=== PATIENT | female | born 1960 | race Caucasian/White ===

== ENCOUNTER 2016-11-01 09:12 | Observation (INO) ==
[2016-11-01] MEDS ORDERED: ONDANSETRON 4 MG/2 ML VIAL IV PRN (09:20)
[2016-11-01] MEDS ORDERED: ACETAMINOPHEN 325 MG TABLET PO PRN (09:20)
[2016-11-01] MEDS ORDERED: DOCUSATE SODIUM 100 MG CAPSULE PO PRN (09:20)
[2016-11-01] MEDS ORDERED: ZALEPLON 5 MG CAPSULE PO PRN (09:20)
--- NOTE | 2016-11-01 10:59 | EKG Report ---
Stationary ECG Study [facility] Test Date: 11/01/2016 10:59:19 AM Pat Name: DELMI OAKLEY Department: Room: 237 Gender: F [employer] Member: JAMILA : 1960 Requested by: Rachael Bowles Order Number: [id number] Reading MD: SAMIRA SALAZAR Intervals [place] Rate: 54 P: 48 MA: 166 QRS: -18 QRSD: 90 T: 23 QT: 422 QTc: 409 Interpretive Statements SINUS BRADYCARDIA POSSIBLE RIGHT VENTRICULAR CONDUCTION DELAY Electronically Signed On 11-03-16 13:02:12 CDT by SAMIRA SALAZAR [email or web address]
[2016-11-01 11:32] LABS: Basophils % 0.4 % (0.0-0.8); Eosinophils # 0.1 10*3/uL (0.0-0.87); Eosinophils % 1.1 % (0.00-10.9); Hematocrit 47.6 VOL% (35.7-47.0); Immature Granulocytes % 0.4 %; Immature Granulocytes Absolute 0.04 #; Lymphocytes # 2.2 10*3/uL (1.4-4.0); Mean Corpuscular HGB Conc 31.5 GM/DL (32-36); Mean Corpuscular Hemoglobin 31 PG (27-34); Mean Corpuscular Volume 99.4 FL (87-102); Mean Platelet Volume 9.3 FL (9.6-12.0); Monocytes # 0.5 10*3/uL (0.11-0.8); Monocytes % 5.3 % (1.7-12.7); Neutrophils # 6.2 10*3/uL (1.4-7.4); Neutrophils % 68.8 % (38.7-73.9); Platelet Count 248 T/CUMM (130-400); Red Blood Count 4.79 MC/CUMM (3.8-5.5); Red Cell Distribution Width 13.1 % (9.3-17.3)
[2016-11-01 12:13] LABS: Calcium 8.7 MG/DL (8.5-10.1); Osmolality,Calculated 286.7 MOS/KG (273-304); Potassium 4.1 MMOL/L (3.5-5.1); Risk Ratio 2.74; Thyroid Stimulating Hormone 0.788 uIU/ml (0.358-3.74); VLDL CHOLESTEROL 36.6 MG/DL
--- NOTE | 2016-11-01 12:43 | Pulmonology Consult Note ---
Assessment and Plan (1) Acute bronchitis Status: Acute Assessment and plan: She has had a cough and sputum production going on for 2-3 weeks now. We will treat her for exacerbation of COPD. Do not know for sure that she has COPD however. We will need to get PFTs on her. Current Visit: Yes (2) Coronary artery disease Status: Chronic Assessment and plan: Previous coronary stent. Defer to cardiology. Current Visit: No (3) Fibromyalgia Status: Chronic Assessment and plan: Chronic problem for her. She has been on a lot of medication for that. Current Visit: No (4) Tobacco abuse Status: Chronic Assessment and plan: I have stressed the importance of her stopping smoking. She tells me that it is difficult. Current Visit: No History of Present Illness Chief complaint: Shortness of breath general debility History of present illness: Ms. Mar is a 56 year old female who has been a long-term smoker. She smoked 2 packs a day up until about a year ago and cut back to half pack a day. She has fibromyalgia and has been told she had COPD in the past. She had a chest x-ray made about a year and a half ago at which time she had a non-ST elevation myocardial infarction and had a heart cath and a stent. She tells me that she was told at that time she had a mass on her long and needed to see a lung doctor. Reviewing the film from that date she has a minimal left basilar infiltrate which has subsequently resolved and there is no mass on her chest x- ray. She is really down because she has been applying for disability and has not been able to get it apparently. Her has [employer] and is followed by miter sawyer in [place]. The patient states that she is not able to afford medications or medical care because she is uninsured. She does have some dyspnea on exertion. She has a cough with phlegm production with brownish phlegm. She had a recent episode of bronchitis about 3 weeks ago and was given a shot and some oral medications by Dr. Lopez in [place]. She is really not better from that. Home Medications Medication Instructions Recorded Confirmed Type Famotidine 20 mg PO DAILY W/SUPPER PRN 06/25/15 11/01/16 History HYDROcodone/ACETAMIN 7.5-325 1 tablet PO BID 06/25/15 11/01/16 History [[place] 7.5-325] traZODone [Desyrel] 50 mg PO BEDTIME 06/25/15 11/01/16 History Atorvastatin [Lipitor] 80 mg PO BEDTIME 07/20/16 11/01/16 History Alprazolam [Xanax] 1 mg PO QID 11/01/16 11/01/16 History Cholecalciferol (Vitamin D3) 2,000 unit PO DAILY 11/01/16 11/01/16 History [Vitamin D3] Clopidogrel [Plavix] 75 mg PO DAILY 11/01/16 11/01/16 History Cyanocobalamin Inj [Vitamin B12 1,000 mcg SUBCUT Q30D 11/01/16 11/01/16 History Inj] Furosemide Tab [Lasix Tab] 40 mg PO QOTHER DAY 11/01/16 11/01/16 History Lisinopril [Prinivil] 10 mg PO DAILY 11/01/16 11/01/16 History Methocarbamol 750 mg PO BID 11/01/16 11/01/16 History Metoprolol Tartrate 25 mg PO BID 11/01/16 11/01/16 History Allergies Allergy/AdvReac Type Severity Reaction Status Date / Time No Known Allergies Allergy Verified 07/19/16 22:56 12 point system: reviewed and no additional remarkable complaints except as stated - Cardiovascular Cardiovascular: Present: chest pain with activity (This has resolved since previous hospitalization in July), dyspnea, dyspnea on exertion - Respiratory Respiratory: Present: cough, dyspnea, dyspnea on exertion, change in phlegm color - Musculoskeletal Musculoskeletal: Present: arthralgias, back pain, myalgias - Psychiatric Psychiatric: Present: anxiety - Endocrine Endocrine: Present: fatigue - Hematologic/Lymphatic Hematologic/Lymphatic: Present: easy bruising Exam (Pulmonay) H&P - Constitutional Vitals: Period Temp Pulse Resp BP Sys/Salmon Pulse Ox Last 24 Hr 98.3 F 60 20 132/73 96 Exam: Vital signs are normal. Room air O2 saturation 96%. She appears anxious. Pupils react to light. Throat is clear. Neck supple no bruits. Chest reveals prolonged expiratory phase but no active wheezing. Heart normal rate and rhythm no murmurs no rubs no gallops. Abdomen soft nontender no masses. Extremities no clubbing cyanosis or edema. Calves nontender. Medical,Surgical,& Family Hx - Medical History Cardio: History of: Hypertension, [place] (2015) No history of: Aneurysm, Cardiac Dysrhythmia, Cerebrovascular Disease, CHF, Pacemaker Psychological: History of: Depression No history of: Anxiety Disorders, ADHD, Behavior Problems, Previous Suicide Attempt, Psychiatric/Substance Abuse Tx, Violent Behavior, Psychiatric Problems Neurology: History of: Seizures (hx none at present) No history of: Brain Aneurysm, Cerebral Hemorrhage, Cerebrovascular Accident , Cerebral Palsy, Dementia, Parkinson's Disease, Peripheral Neuropathy, Neurologocal Cancer HEENT: No history of: Ear Problem, Eye Problem, Dental Problems, Glaucoma, Oral Cancer, HEENT Problems Endocrine: No history of: Adrenal Disease, Diabetes Mellitus (IDDM), Diabetes Mellitus ( NIDDM), Thyroid Disorder, Endocrine Cancer, Endocrine Problems Respiratory: History of: Bronchitis, COPD No history of: Asthma, Obstructive Sleep Apnea, Pulmonary Hypertension, Respiratory Problems Renal: History of: Renal Problems (URINARY HESTANCY) Gastrointestinal: History of: GERD, Hemorrhoids No history of: Gastrointestinal Bleed, Hepatitis, Liver Problems, Pancreatitis, Ulcerative Colitis, Gastrointestinal Cancer, GI Problems Musculoskeletal: History of: Musculoskeletal Problems (fibromyalgia. LEFT ARM WAS BROKE IN 2009) - Surgical History Cardiac Surgeries: Sugical HX of: Cardiac Catheterization (stents) Patient Denies: Femoral-Popliteal Bypass Graft, Cardiac Surgery, Carotid Endarterectomy, Internal Defibrillator, Vascular Access Devices Thoracic Surgeries: Patient denies;: Organ Transplant Neurologic Surgeries: Patient denies: Brain Aneurysm, Cerebral Hemorrhage, Neurologic Surgery HEENT Surgeries: Surgical HX of: Tonsilectomy & Adenoidectomy Patient denies: Carotid Endarterectomy, Thyroid Surgery Abdominal Surgeries: Surgical HX of: Abdominal Surgery (hyst), Appendectomy Patient denies: Gastric Bypass Surgery, Splenectomy Reproductive Surgeries: Surgical HX of;: Section, Gynecologic Surgery, Hysterectomy, Tubal Ligation - Family History Family History: Reports;: Family Heart Disease (father), Family Hypertension ( mother), Family Stroke (mother) Denies;: Family Anesthesia Reaction, Family Cancer, Family Diabetes, Family Psychiatric Problems - Social History Smoking Status: Current every day smoker Frequency of Alcohol Use: None Type of Drug Use: None Results - Labs CBC & BMP: 11/01/16 11:22 11/01/16 11:22 Lab Results: I have reviewed the past 24 hour labs - Diagnostic Findings Procedure: Chest x-ray: pending
[2016-11-01] MEDS: FLUTICASONE/SALMETEROL 250-50 DISKUS 14 DOSE INH SCH ×2 (13:42→23:42)
[2016-11-01] MEDS: ENOXAPARIN 40 MG/0.4 ML SYRINGE SUBCUT SCH (13:43)
[2016-11-01] MEDS: ALBUTEROL/IPRATROPIUM 3 ML NEB RESP TX SCH ×2 (13:51→19:53)
[2016-11-01 13:55] LABS: Allen Test Positive; Pt O2 Delivery Device Room Air
[2016-11-01 13:56] LABS: ABG Base Excess 3.9 MMOL/L (-2.5-2.5); ABG HCO3 27.8 MMOL/L (20-26); ABG PCO2 41.2 MM HG (35-48); ABG PH 7.445 (7.35-7.45); ABG PO2 69.7 MM HG (80-95); ABG TCO2 24.2 MMOL/L (23-27)
[2016-11-01] MEDS ORDERED: FAMOTIDINE 20 MG TABLET PO PRN (14:14)
[2016-11-01] MEDS ORDERED: FUROSEMIDE 40 MG TABLET PO SCH (14:30)
--- NOTE | 2016-11-01 15:02 | XRay Report ---
XR chest 2V Date: 11/01/2016 9:22 AM History: Shortness of breath Comparison: 07/20/2016 Technique: PA and lateral chest Findings: The heart is borderline in size with calcification in the aortic knob. No acute findings in the lungs or mediastinum. Degenerative changes are noted. Impression: No acute cardiopulmonary pathology identified. PROCEDURE INTERPRETED AT [facility] DEPARTMENT OF RADIOLOGY Final Report Signed by: Dr. Jessica Phillip
[2016-11-01] MEDS: METHOCARBAMOL 750 MG TABLET PO SCH ×2 (16:00→23:41)
[2016-11-01] MEDS: METOPROLOL TARTRATE 25 MG TABLET PO SCH ×2 (16:00→23:42)
[2016-11-01] MEDS: LISINOPRIL 5 MG TABLET PO SCH (16:00)
[2016-11-01] MEDS: CLOPIDOGREL 75 MG TABLET PO SCH (16:00)
[2016-11-01] MEDS: NICOTINE 21 MG/24 HR PATCH TRANSDERM PRN (16:16)
[2016-11-01] MEDS: ALPRAZolam 0.5 MG TABLET PO SCH ×2 (16:23→23:42)
--- NOTE | 2016-11-01 17:09 | Event Note ---
This Plummer admitted by Dr. Geller with some chest discomfort and shortness of breath. She is still feeling poorly, but has no new complaints this evening. PO2 of 69 noted on ABG, however she does not feel that she needs any oxygen.
[2016-11-01 17:51] LABS: Apearance,Urine CLEAR (Clear); Bacteria,Urine Occasional /HPF (Few); Bilirubin,Urine Negative (Negative); Blood, Urine Small mg/dL (Negative); Glucose,Urine (UA) Negative (Negative); Ketones,Urine Negative (Negative); Mucus,Urine Occasional /LPF (Occasional); Nitrite,Urine Negative (Negative); Protein,Urine Negative; RBC,Urine <1 /HPF (0-4); Urine Color Straw (Yellow); Urine Specific Gravity 1.009 (1.001-1.035); Urine Urobilinogen < 2.0 EU/DL (0.2-1.0); WBC,Urine 1 /HPF (0-6)
[2016-11-01] MEDS ORDERED: ATORVASTATIN 40 MG TABLET PO SCH (21:00)
[2016-11-01] MEDS ORDERED: traZODone 50 MG TABLET PO SCH (21:00)
[2016-11-02] MEDS: ALBUTEROL/IPRATROPIUM 3 ML NEB RESP TX SCH ×2 (02:33→07:25)
--- NOTE | 2016-11-02 06:41 | Pulmonology Progress Note ---
Pulmonary - PN: Subj Interval history: This is a 56-year-old smoker with chronic dyspnea on exertion. She has had coronary stents in the past. She was admitted by cardiology yesterday for evaluation. She told me that she had had a spot on her lung in the past but they were concerned about, however her x-ray on this admission and last admission showed her lungs to be clear. She has some prolonged expiratory phase and a chronic cough and dyspnea on exertion and probably has COPD. PFTs are pending today. I told her the primary treatment for what she has would be smoking cessation. She may benefit from a controller inhaler. That can be decided after her PFTs are reviewed. They are to be done today. Exam (Progress Note) - Constitutional Vitals: Period Temp Pulse Resp BP Sys/Salmon Pulse Ox Last 24 Hr 98.2 F-98.3 F 54-69 16-20 126-132/57-73 95-99 Exam: She is alert. Vital signs normal. Pupils react to light. Throat is clear. Neck supple no bruits. Chest shows prolonged expiratory phase. I do not hear any active wheezing. Heart normal rate rhythm no murmurs. Abdomen soft nontender no masses. Extremities no clubbing cyanosis edema. Calves nontender. Results - Labs CBC & BMP: 11/01/16 11:22 11/01/16 11:22 Lab Results: I have reviewed the past 24 hour labs - Diagnostic Findings Procedure: Chest x-ray: image reviewed by me (Lung epps are clear. No acute infiltrates.) Assessment and Plan (1) Acute bronchitis Status: Acute Assessment and plan: She has had a cough and sputum production going on for 2-3 weeks now. We will treat her for exacerbation of COPD. Do not know for sure that she has COPD however. We will need to get PFTs on her. 11/02/2016 she is being treated for acute bronchitis. They be treated with oral medications after today. Current Visit: Yes (2) Coronary artery disease Status: Chronic Assessment and plan: Previous coronary stent. Defer to cardiology. Current Visit: No (3) Fibromyalgia Status: Chronic Assessment and plan: Chronic problem for her. She has been on a lot of medication for that. 11/02/2016 she is on medications for this. Has a difficult time buying her medicines. Current Visit: No (4) Tobacco abuse Status: Chronic Assessment and plan: I have stressed the importance of her stopping smoking. She tells me that it is difficult. 11/02/2016 again strongly advised to stop smoking. This would be the principal treatment for her COPD. This would also free up some funds for her to buy her medications. Current Visit: No
[2016-11-02] MEDS ORDERED: CYANOCOBALAMIN 1000 MCG/1 ML VIAL SUBCUT SCH (09:00)
[2016-11-02] MEDS ORDERED: PANTOPRAZOLE 40 MG TABLET PO SCH (09:00)
[2016-11-02] MEDS ORDERED: LEVOFLOXACIN 500 MG TABLET PO SCH (09:00)
[2016-11-02] MEDS ORDERED: CHOLECALCIFEROL 1,000 UNIT TABLET PO SCH (09:00)
[2016-11-02] MEDS: FLUTICASONE/SALMETEROL 250-50 DISKUS 14 DOSE INH SCH (10:48)
[2016-11-02] MEDS: NICOTINE 21 MG/24 HR PATCH TRANSDERM PRN (10:48)
[2016-11-02] MEDS: ENOXAPARIN 40 MG/0.4 ML SYRINGE SUBCUT SCH (10:49)
[2016-11-02] MEDS: METHOCARBAMOL 750 MG TABLET PO SCH (10:50)
[2016-11-02] MEDS: ALPRAZolam 0.5 MG TABLET PO SCH (10:51)
[2016-11-02] MEDS: CLOPIDOGREL 75 MG TABLET PO SCH (10:52)
[2016-11-02] MEDS: LISINOPRIL 5 MG TABLET PO SCH (10:52)
[2016-11-02] MEDS: METOPROLOL TARTRATE 25 MG TABLET PO SCH (10:53)
--- NOTE | 2016-11-02 14:39 | Discharge Summary ---
Luciana Milan April, RN, am scribing for, and in the presence of, Tan Moon MD 14:39. Hospital Course - Hospital Course Hospital Course: Ms. Mar who is routinely followed by Dr. Geller. She was seen in his office for a checkup yesterday and complained of shortness of breath and chest discomfort. The chest pain was not necessarily related to exertion and the dyspnea occurred at rest. She was a 3 pack a day smoker until June 2015 when she was admitted with a NSTEMI and had a stent placed in the mid left circumflex. She reports she now smokes half pack a day. Dr. Hooper saw her in consultation and PFT's have been done. It showed moderate obstructive disease. Of note her PO2 was just under 70 on admission. Today she reports she is feeling better and says her breathing has improved. She reports she had 1 short chest pain during the night (sounds like GERD?), but no other episodes. She could not really describe this pain, just that it was very brief. Today we had a long discussion concerning her need to stop smoking. She says she is down to less than a half pack per day but feels the need to smoke when she becomes anxious. She reports "when I don't smoke, I oftentimes to sit around and cry". She cannot afford Chantix. I recommended nicotine supplements as needed. - Time spent with patient Time with patient DS: Greater than 30 minutes Time spent discussing smoking cessation with patient: more than 10 minutes Diagnosis - Discharge Diagnosis (1) Shortness of breath Status: Acute (2) Coronary artery disease Status: Chronic (3) Dyslipidemia Status: Chronic (4) Hypertension Status: Chronic (5) Tobacco abuse Status: Acute Specialty Discharge - Follow Up or Referrals Follow up with: Demetria Geller DO [Physician] - 1 Month Discharge Plan - Discharge Data Disposition: Disch To Home/Self Care Condition at Discharge: Stable Discharge Diet: heart healthy Activity: resume usual activities as tolerated Hygiene: no restrictions Weight Bearing at Discharge: weight bear as tolerated Driving: no restrictions Contact your physician if you experience:: fever over 101, Difficulty voiding, Redness or swelling, Nausea/Vomiting, Shortness of breath, Bleeding, pain uncontrolled by pain medications - Discharge Medications Continue traZODone [Desyrel] 50 mg PO BEDTIME HYDROcodone/ACETAMIN 7.5-325 [[place]iko 7.5-325] 1 tablet PO BID Famotidine 20 mg PO DAILY W/SUPPER PRN PRN Reason: Reflux Atorvastatin [Lipitor] 80 mg PO BEDTIME Cyanocobalamin Inj [Vitamin B12 Inj] 1,000 mcg SUBCUT Q30D Methocarbamol 750 mg PO BID Furosemide Tab [Lasix Tab] 40 mg PO QOTHER DAY Metoprolol Tartrate 25 mg PO BID Alprazolam [Xanax] 1 mg PO QID Clopidogrel [Plavix] 75 mg PO DAILY Lisinopril [Prinivil] 10 mg PO DAILY Cholecalciferol (Vitamin D3) [Vitamin D3] 2,000 unit PO DAILY - Follow Up or Referral Follow Up: Demetria Geller DO [Physician] - 1 Month - Forms/Instructions Exam - Constitutional Vitals: Period Temp Pulse Resp BP Sys/Salmon Pulse Ox Last 24 Hr 96.8 F-98.8 F 54-69 16-20 105-132/54-75 94-99 Discharge Results Labs on day of discharge: Labs from last 24 hours 11/01/16 11/01/16 11/01/16 17:30 16:34 13:49 WBC RBC Hgb Hct MCV MCH MCHC RDW Plt Count MPV Neut % (Auto) Lymph % (Auto) [place] % (Auto) Eos % (Auto) Baso % (Auto) Neut # (Auto) Lymph # (Auto) [place] # (Auto) Eos # (Auto) Baso # (Auto) Immature Gran % Nucleated RBC % Immature Gran # Nucleated RBCs # ABG pH 7.445 ABG pCO2 41.2 ABG pO2 69.7 L ABG HCO3 27.8 H ABG Total CO2 24.2 ABG O2 Saturation 95.0 ABG Base Excess 3.9 H FiO2 21.00 Sodium Potassium Chloride Carbon Dioxide Anion Gap BUN Creatinine GFR Calculation BUN/Creatinine Ratio Glucose Calculated Osmolality Calcium Troponin I < 0.015 Triglycerides Cholesterol LDL Cholesterol VLDL Cholesterol HDL Cholesterol Heart Disease Risk Ratio TSH 3rd Generation Urine Color Straw Urine Appearance Clear Urine pH 5.0 Ur Specific [place] 1.009 Urine Protein Negative Urine Glucose (UA) Negative Urine Ketones Negative Urine Blood Small Urine Nitrate Negative Urine Bilirubin Negative Urine Urobilinogen < 2.0 H Urine Leukocytes Negative Urine RBC <1 Urine WBC 1 Urine Bacteria Occasional Urine Mucus Occasional Ur Culture Indicated? Not indicated 11/01/16 11/01/16 11/01/16 11:22 11:22 11:22 WBC 9.0 RBC 4.79 Hgb 15.0 Hct 47.6 H MCV 99.4 MCH 31 MCHC 31.5 L RDW 13.1 Plt Count 248 MPV 9.3 L Neut % (Auto) 68.8 Lymph % (Auto) 24.0 [place] % (Auto) 5.3 Eos % (Auto) 1.1 Baso % (Auto) 0.4 Neut # (Auto) 6.2 Lymph # (Auto) 2.2 [place] # (Auto) 0.5 Eos # (Auto) 0.1 Baso # (Auto) 0.0 Immature Gran % 0.4 Nucleated RBC % 0.0 Immature Gran # 0.04 Nucleated RBCs # 0.00 ABG pH ABG pCO2 ABG pO2 ABG HCO3 ABG Total CO2 ABG O2 Saturation ABG Base Excess FiO2 Sodium 145 Potassium 4.1 Chloride 105 Carbon Dioxide 27 Anion Gap 17.1 H BUN 10 Creatinine 0.80 GFR Calculation 98 BUN/Creatinine Ratio 12.00 Glucose 95 Calculated Osmolality 286.7 Calcium 8.7 Troponin I < 0.015 Triglycerides 183 H Cholesterol 129 LDL Cholesterol 56.0 VLDL Cholesterol 36.6 HDL Cholesterol 47 Heart Disease Risk Ratio 2.74 TSH 3rd Generation 0.788 Urine Color Urine Appearance Urine pH Ur Specific [place] Urine Protein Urine Glucose (UA) Urine Ketones Urine Blood Urine Nitrate Urine Bilirubin Urine Urobilinogen Urine Leukocytes Urine RBC Urine WBC Urine Bacteria Urine Mucus Ur Culture Indicated? - Imaging and Cardiology Procedure: Chest x-ray: report reviewed by me DS: Provider Consults: 11/01/16 09:20 Consult to Physician [CONS] Routine Comment: COPD Consulting Provider: Smith Hooper Person Notified: [email or web address] Date Notified: 11/01/16 Time Notified: 11:11 11/01/16 11:11 Consult to Pastoral Services [CONS] Routine Comment: Pastoral Screen: Request Financial Sales Assistant Visit Pastoral Screen Source of Request: Patient 11/01/16 12:34 Consult to Case Mgmt/Social Srvs [CONS] Routine Reason for Case Mgmt/Social Srvs: Other Consult Comment: medicaid assistance Expected date of discharge: 11/02/16 Sarai Milan Randall Scott, MD, personally performed the services described in this documentation, ascribed by Chowdhury,Triny, RN in my presence, and it is both accurate and complete .
[2016-11-02 16:06] VITALS: BP 108/47
== END 2016-11-02 13:15 | disposition home or self-care (01) ==
LOC: N.2E
PROVIDERS: ADMIT Internal Medicine Cardiovascular Disease; ATTEND Internal Medicine Cardiovascular Disease

== ENCOUNTER 2018-05-05 14:58 | Inpatient (IN) ==
[2018-05-05] MEDS ORDERED: MORPHINE 4 MG/1 ML VIAL IV STA ×2 (17:19→19:00)
[2018-05-05] MEDS ORDERED: ASPIRIN 325 MG TABLET PO STA (17:19)
[2018-05-05] MEDS ORDERED: NITROGLYCERIN 2% OINT 1 INCH/GM PACK TOP STA (17:19)
[2018-05-05] MEDS ORDERED: ONDANSETRON 4 MG/2 ML VIAL IV STA (17:19)
[2018-05-05] MEDS ORDERED: ENOXAPARIN 100 MG/ML SYRINGE SUBCUT STA (17:19)
[2018-05-05 18:44] LABS: Basophils % 0.3 % (0.0-0.8); Eosinophils # 0.1 10*3/uL (0.0-0.87); Eosinophils % 1.2 % (0.00-10.9); Hematocrit 45.3 VOL% (35.7-47.0); Hemoglobin 14.9 GM/DL (12.0-16.0); Immature Granulocytes % 0.5 %; Immature Granulocytes Absolute 0.05 #; Lymphocytes # 2.6 10*3/uL (1.4-4.0); Lymphocytes % 27.1 % (21.3-54.2); Mean Corpuscular HGB Conc 32.9 GM/DL (32-36); Mean Corpuscular Hemoglobin 31 PG (27-34); Mean Corpuscular Volume 94.8 FL (87-102); Mean Platelet Volume 9.6 FL (9.6-12.0); Monocytes # 0.5 10*3/uL (0.11-0.8); Monocytes % 5.1 % (1.7-12.7); Neutrophils # 6.2 10*3/uL (1.4-7.4); Neutrophils % 65.8 % (38.7-73.9); Platelet Count 270 T/CUMM (130-400); Red Blood Count 4.78 MC/CUMM (3.8-5.5); Red Cell Distribution Width 13.8 % (9.3-17.3); White Blood Count 9.4 T/CUMM (4-12)
[2018-05-05 18:52] LABS: PT Patient Result 10.1 SECS
[2018-05-05 19:17] LABS: Apearance,Urine CLEAR (Clear); Bilirubin,Urine Negative (Negative); Blood, Urine Small mg/dL (Negative); Glucose,Urine (UA) Negative (Negative); Ketones,Urine Negative (Negative); Mucus,Urine Occasional /LPF (Occasional); Nitrite,Urine Negative (Negative); Protein,Urine Negative; RBC,Urine <1 /HPF (0-4); Squamous Epithelial Cell,Urine Occasional /HPF (0-10); Urine Color Yellow (Yellow); Urine Specific Gravity 1.011 (1.001-1.035); Urine Urobilinogen < 2.0 EU/DL (0.2-1.0); WBC,Urine <1 /HPF (0-6)
[2018-05-05 19:18] LABS: Albumin 3.5 G/DL (3.4-5.0); Bilirubin,Total 0.6 MG/DL (0.2-1.0); Osmolality,Calculated 277.4 MOS/KG (273-304); Potassium 3.9 MMOL/L (3.5-5.1); Total Protein 7.2 G/DL (6.4-8.3)
[2018-05-05 19:26] LABS: Barbiturates Screen,Urine Negative (Negative); Benzodiazepines Screen,Urine Negative (Negative); Cannabinoid Screen,Urine Negative (Negative); Opiate Screen,Urine Positive (Negative); Phencyclidine Screen,Urine Negative (Negative)
[2018-05-05] MEDS ORDERED: MORPHINE 4 MG/1 ML VIAL IV PRN (21:32)
[2018-05-05] MEDS ORDERED: DOCUSATE SODIUM 100 MG CAPSULE PO PRN (21:32)
[2018-05-05] MEDS ORDERED: guaiFENesin/DM ER 600-30 MG TABLET PO PRN (21:32)
[2018-05-05] MEDS ORDERED: ZALEPLON 5 MG CAPSULE PO PRN (21:32)
[2018-05-05] MEDS ORDERED: ONDANSETRON 4 MG/2 ML VIAL IV PRN (21:32)
[2018-05-05] MEDS ORDERED: ACETAMINOPHEN 325 MG TABLET PO PRN (21:32)
[2018-05-05] MEDS ORDERED: NICOTINE 21 MG/24 HR PATCH TRANSDERM PRN (21:32)
[2018-05-05] MEDS ORDERED: CYCLOBENZAPRINE 10 MG TABLET PO PRN (21:38)
[2018-05-05] MEDS ORDERED: NITROGLYCERIN SL 0.4 MG TABLET SL PRN (21:38)
[2018-05-05] MEDS: traZODone 50 MG TABLET PO SCH (23:28)
[2018-05-05] MEDS: METOPROLOL TARTRATE 25 MG TABLET PO SCH (23:29)
[2018-05-06 00:43] LABS: Basophils % 0.3 % (0.0-0.8); Eosinophils # 0.1 10*3/uL (0.0-0.87); Eosinophils % 1.2 % (0.00-10.9); Hematocrit 41.3 VOL% (35.7-47.0); Hemoglobin 13.6 GM/DL (12.0-16.0); Immature Granulocytes % 0.3 %; Immature Granulocytes Absolute 0.03 #; Lymphocytes # 3.3 10*3/uL (1.4-4.0); Lymphocytes % 37.1 % (21.3-54.2); Mean Corpuscular HGB Conc 32.9 GM/DL (32-36); Mean Corpuscular Hemoglobin 32 PG (27-34); Mean Platelet Volume 9.7 FL (9.6-12.0); Monocytes # 0.5 10*3/uL (0.11-0.8); Monocytes % 5.3 % (1.7-12.7); Neutrophils % 55.8 % (38.7-73.9); Platelet Count 251 T/CUMM (130-400); Red Cell Distribution Width 13.9 % (9.3-17.3); White Blood Count 8.9 T/CUMM (4-12)
[2018-05-06 01:13] LABS: Calcium 8.2 MG/DL (8.5-10.1)
[2018-05-06 01:14] LABS: Osmolality,Calculated 276.5 MOS/KG (273-304); Risk Ratio 6.79; Thyroid Stimulating Hormone 2.65 uIU/ml (0.358-3.74)
[2018-05-06] MEDS ORDERED: POTASSIUM CHLORIDE 20 MEQ TABLET PO ONE (05:18)
[2018-05-06] MEDS: SERTRALINE 100 MG TABLET PO SCH (08:18)
[2018-05-06] MEDS: CLOPIDOGREL 75 MG TABLET PO SCH (08:18)
[2018-05-06] MEDS: FUROSEMIDE 20 MG TABLET PO SCH (08:18)
[2018-05-06] MEDS: ENOXAPARIN 40 MG/0.4 ML SYRINGE SUBCUT SCH (08:19)
[2018-05-06] MEDS: METOPROLOL TARTRATE 25 MG TABLET PO SCH ×2 (08:19→21:02)
[2018-05-06] MEDS: LISINOPRIL 10 MG TABLET PO SCH (08:19)
[2018-05-06] MEDS: PANTOPRAZOLE 40 MG TABLET PO SCH (08:19)
[2018-05-06] MEDS ORDERED: LOVASTATIN 20 MG TABLET PO SCH (17:00)
[2018-05-06] MEDS: CILOSTAZOL 100 MG TABLET PO SCH (21:00)
[2018-05-06] MEDS: traZODone 50 MG TABLET PO SCH (21:00)
[2018-05-06] MEDS: ATORVASTATIN 80 MG TABLET PO SCH (21:00)
[2018-05-07 05:36] LABS: Basophils % 0.4 % (0.0-0.8); Eosinophils # 0.1 10*3/uL (0.0-0.87); Eosinophils % 1.3 % (0.00-10.9); Hematocrit 41.6 VOL% (35.7-47.0); Hemoglobin 13.3 GM/DL (12.0-16.0); Immature Granulocytes % 0.5 %; Immature Granulocytes Absolute 0.04 #; Lymphocytes # 2.5 10*3/uL (1.4-4.0); Lymphocytes % 31.9 % (21.3-54.2); Mean Corpuscular Hemoglobin 31 PG (27-34); Mean Corpuscular Volume 95.6 FL (87-102); Mean Platelet Volume 10.1 FL (9.6-12.0); Monocytes # 0.6 10*3/uL (0.11-0.8); Monocytes % 8.1 % (1.7-12.7); Neutrophils # 4.6 10*3/uL (1.4-7.4); Neutrophils % 57.8 % (38.7-73.9); Platelet Count 259 T/CUMM (130-400); Red Blood Count 4.35 MC/CUMM (3.8-5.5); Red Cell Distribution Width 13.7 % (9.3-17.3)
[2018-05-07 06:12] LABS: Calcium 8.5 MG/DL (8.5-10.1)
[2018-05-07 06:13] LABS: Osmolality,Calculated 276.5 MOS/KG (273-304); Potassium 3.5 MMOL/L (3.5-5.1)
[2018-05-07] MEDS: FUROSEMIDE 20 MG TABLET PO SCH (09:26)
[2018-05-07] MEDS: ASPIRIN EC 81 MG TABLET PO SCH (09:26)
[2018-05-07] MEDS: CLOPIDOGREL 75 MG TABLET PO SCH (09:26)
[2018-05-07] MEDS: PANTOPRAZOLE 40 MG TABLET PO SCH (09:26)
[2018-05-07] MEDS: LISINOPRIL 10 MG TABLET PO SCH (09:26)
[2018-05-07] MEDS: SERTRALINE 100 MG TABLET PO SCH (09:26)
[2018-05-07] MEDS: METOPROLOL TARTRATE 25 MG TABLET PO SCH ×2 (09:26→20:59)
[2018-05-07] MEDS: CILOSTAZOL 100 MG TABLET PO SCH ×2 (09:29→20:59)
[2018-05-07] MEDS ORDERED: diphenhydrAMINE CAP 50 MG CAPSULE PO ONE (09:30)
[2018-05-07] MEDS ORDERED: DIAZEPAM 5 MG TABLET PO ONE (09:30)
[2018-05-07] MEDS: ENOXAPARIN 40 MG/0.4 ML SYRINGE SUBCUT SCH (09:33)
[2018-05-07] MEDS ORDERED: LIDOCAINE 1% 20 ML VIAL ONE (09:49)
[2018-05-07] MEDS ORDERED: HYDROmorphone 2 MG/1 ML VIAL ONE (09:49)
[2018-05-07] MEDS ORDERED: MIDAZOLAM 2 MG/2 ML VIAL ONE (09:49)
[2018-05-07] MEDS ORDERED: HEPARIN 5,000 UNIT/1 ML VIAL ONE ×2 (10:19→12:31)
[2018-05-07] MEDS ORDERED: TIROFIBAN 5,000 MCG/100 ML PREMIX IV ONE (11:05)
[2018-05-07] MEDS ORDERED: NITROGLYCERIN DRIP 50 MG/250 ML BOTTLE IV ONE (12:16)
[2018-05-07] MEDS ORDERED: CLOPIDOGREL 300 MG TABLET ONE (12:42)
[2018-05-07] MEDS ORDERED: SODIUM CHLORIDE 0.9% 500 ML IV ONE (13:52)
[2018-05-07] MEDS: SODIUM CHLORIDE 0.9% 500 ML IV ONE ×2 (15:30→15:42)
[2018-05-07 16:31] LABS: Basophils % 0.3 % (0.0-0.8); Eosinophils # 0.1 10*3/uL (0.0-0.87); Hematocrit 35.9 VOL% (35.7-47.0); Hemoglobin 11.4 GM/DL (12.0-16.0); Immature Granulocytes % 0.4 %; Immature Granulocytes Absolute 0.03 #; Lymphocytes # 2.1 10*3/uL (1.4-4.0); Lymphocytes % 30.4 % (21.3-54.2); Mean Corpuscular HGB Conc 31.8 GM/DL (32-36); Mean Corpuscular Hemoglobin 31 PG (27-34); Mean Corpuscular Volume 97.3 FL (87-102); Mean Platelet Volume 9.8 FL (9.6-12.0); Monocytes # 0.4 10*3/uL (0.11-0.8); Monocytes % 5.1 % (1.7-12.7); Neutrophils # 4.3 10*3/uL (1.4-7.4); Neutrophils % 62.8 % (38.7-73.9); Platelet Count 229 T/CUMM (130-400); Red Blood Count 3.69 MC/CUMM (3.8-5.5); Red Cell Distribution Width 13.9 % (9.3-17.3); White Blood Count 6.9 T/CUMM (4-12)
[2018-05-07 16:50] LABS: Calcium 7.6 MG/DL (8.5-10.1); Osmolality,Calculated 275.7 MOS/KG (273-304); Potassium 4.1 MMOL/L (3.5-5.1)
[2018-05-07] MEDS: ATORVASTATIN 80 MG TABLET PO SCH (20:59)
[2018-05-07] MEDS: traZODone 50 MG TABLET PO SCH (20:59)
[2018-05-08 06:29] LABS: Basophils % 0.4 % (0.0-0.8); Eosinophils # 0.1 10*3/uL (0.0-0.87); Eosinophils % 1.1 % (0.00-10.9); Hematocrit 34.7 VOL% (35.7-47.0); Hemoglobin 11.4 GM/DL (12.0-16.0); Immature Granulocytes % 0.5 %; Immature Granulocytes Absolute 0.04 #; Lymphocytes # 1.3 10*3/uL (1.4-4.0); Lymphocytes % 14.9 % (21.3-54.2); Mean Corpuscular HGB Conc 32.9 GM/DL (32-36); Mean Corpuscular Hemoglobin 31 PG (27-34); Mean Corpuscular Volume 93.5 FL (87-102); Mean Platelet Volume 9.9 FL (9.6-12.0); Monocytes # 0.5 10*3/uL (0.11-0.8); Monocytes % 5.6 % (1.7-12.7); Neutrophils # 6.7 10*3/uL (1.4-7.4); Neutrophils % 77.5 % (38.7-73.9); Platelet Count 223 T/CUMM (130-400); Red Blood Count 3.71 MC/CUMM (3.8-5.5); Red Cell Distribution Width 13.8 % (9.3-17.3); White Blood Count 8.6 T/CUMM (4-12)
[2018-05-08 06:56] LABS: Calcium 8.1 MG/DL (8.5-10.1); Osmolality,Calculated 277.4 MOS/KG (273-304); Potassium 3.8 MMOL/L (3.5-5.1)
[2018-05-08] MEDS: METOPROLOL TARTRATE 25 MG TABLET PO SCH ×2 (07:27→09:01)
[2018-05-08] MEDS: ENOXAPARIN 40 MG/0.4 ML SYRINGE SUBCUT SCH (09:01)
[2018-05-08] MEDS: CILOSTAZOL 100 MG TABLET PO SCH (09:01)
[2018-05-08] MEDS: ASPIRIN EC 81 MG TABLET PO SCH (09:01)
[2018-05-08] MEDS: SERTRALINE 100 MG TABLET PO SCH (09:01)
[2018-05-08] MEDS: FUROSEMIDE 20 MG TABLET PO SCH (09:01)
[2018-05-08] MEDS: CLOPIDOGREL 75 MG TABLET PO SCH (09:01)
[2018-05-08] MEDS: PANTOPRAZOLE 40 MG TABLET PO SCH (09:05)
[2018-05-08 10:35] VITALS: BP 118/71
== END 2018-05-08 11:32 | disposition home or self-care (01) | DRG 254 ==
LOC: N.ED 14:58 → SUATTDRO 21:32 → N.EDINP 21:32 → N.TELES 22:45 → N.CC 05-07 14:40
PROVIDERS: ATTEND Internal Medicine

== ENCOUNTER 2021-11-02 09:57 | Inpatient (IN) ==
[2021-11-02] MEDS ORDERED: MORPHINE 2 MG/1 ML SYRINGE IV STA (10:35)
[2021-11-02] MEDS ORDERED: SODIUM CHLORIDE 0.9% 500 ML IV STA (10:35)
[2021-11-02] MEDS ORDERED: ALUM/MAG/SIMETH/LIDO VISC 1:1 30 ML BOTTLE PO STA (10:35)
[2021-11-02] MEDS ORDERED: ONDANSETRON 4 MG/2 ML VIAL IV STA (10:35)
[2021-11-02 10:36] LABS: Basophils # 0.1 10*3/uL (0.0-0.2); Basophils % 0.4 % (0.0-0.8); Hematocrit 43.6 VOL% (35.7-47.0); Hemoglobin 14.1 GM/DL (12.0-16.0); Immature Granulocytes % 0.6 %; Immature Granulocytes Absolute 0.08 #; Lymphocytes # 1.3 10*3/uL (1.4-4.0); Lymphocytes % 9.7 % (21.3-54.2); Mean Corpuscular HGB Conc 32.3 GM/DL (32-36); Mean Corpuscular Volume 97.1 FL (87-102); Mean Platelet Volume 9.8 FL (9.6-12.0); Monocytes % 2.6 % (1.7-12.7); Neutrophils % 86.7 % (38.7-73.9); Platelet Count 289 T/CUMM (130-400); Red Blood Count 4.49 MC/CUMM (3.8-5.5); Red Cell Distribution Width 13.4 % (9.3-17.3)
[2021-11-02] MEDS ORDERED: MORPHINE 4 MG/1 ML VIAL ONE (10:39)
[2021-11-02 11:02] LABS: Alanine Aminotransferase 22 U/L (13-56); Albumin 3.2 G/DL (3.4-5.0); Alkaline Phosphatase 105 U/L (45-117); Aspartate Amino Transferase 22 U/L (0-37); Bilirubin,Total < 0.39 MG/DL (0.20-1.00); Blood Urea Nitrogen 14 MG/DL (7-18); Calcium 8.9 MG/DL (8.5-10.1); Carbon Dioxide 24 MMOL/L (21-32); Estimated Glom Filtration Rate 67 ML/MIN; Glucose 181 MG/DL (74-106); Osmolality,Calculated 282.5 MOS/KG (273-304); Potassium 3.9 MMOL/L (3.5-5.1); Sodium 139 MMOL/L (136-145); Total Protein 6.9 G/DL (6.4-8.2)
[2021-11-02] MEDS ORDERED: ASPIRIN 325 MG TABLET PO STA (11:21)
[2021-11-02] MEDS ORDERED: ENOXAPARIN 100 MG/ML SYRINGE SUBCUT STA (11:43)
[2021-11-02] MEDS ORDERED: NITROGLYCERIN 2% OINT 1 INCH/GM PACK TOP STA (11:44)
[2021-11-02] MEDS ORDERED: GLUCAGON 1 MG VIAL IM PRN (12:30)
[2021-11-02] MEDS ORDERED: DEXTROSE 10% 250 ML BAG IV PRN (12:44)
[2021-11-02 13:07] LABS: Thyroid Stimulating Hormone 2.27 uIU/ml (0.358-3.74)
[2021-11-02] MEDS ORDERED: NITROGLYCERIN DRIP 50 MG/250 ML BOTTLE IV PRN (13:16)
[2021-11-02] MEDS ORDERED: POTASSIUM CHLORIDE RIDER 10 MEQ/100 ML PREMIX IV PRN (14:14)
[2021-11-02] MEDS ORDERED: SODIUM CHLORIDE 0.9% 1,000 ML IV SCH (14:30)
[2021-11-02] MEDS ORDERED: HEPARIN/NACL 0.9% 2 UNITS/ML 3,000 UNIT/1,500 ML BAG IV ONE (14:33)
[2021-11-02] MEDS ORDERED: MIDAZOLAM 2 MG/2 ML VIAL ONE (14:44)
[2021-11-02] MEDS ORDERED: fentaNYL 100 MCG/2 ML VIAL ONE (14:44)
[2021-11-02] MEDS ORDERED: MAGNESIUM SULF RIDER 2 GM/50 ML PREMIX IV ONE (15:00)
[2021-11-02] MEDS ORDERED: CLOPIDOGREL 75 MG TABLET ONE (15:07)
[2021-11-02] MEDS ORDERED: NITROGLYCERIN DRIP 50 MG/250 ML BOTTLE IV ONE (15:12)
[2021-11-02] MEDS: PANTOPRAZOLE 40 MG VIAL IV SCH (18:04)
[2021-11-02] MEDS: SODIUM CHLORIDE 0.45% 1,000 ML IV SCH (18:07)
[2021-11-02] MEDS: cefTRIAXone 1,000 MG in SODIUM CHLORIDE 0.9% 100 ML IV SCH (18:09)
[2021-11-02] MEDS ORDERED: ACETAMINOPHEN 325 MG TABLET PO PRN (18:28)
[2021-11-02] MEDS: ONDANSETRON 4 MG/2 ML VIAL IV PRN ×2 (18:36→21:16)
[2021-11-02] MEDS: ATORVASTATIN 80 MG TABLET PO SCH (21:16)
[2021-11-02] MEDS: cilostazoL 100 MG TABLET PO SCH (21:16)
[2021-11-02] MEDS: METOPROLOL TARTRATE 25 MG TABLET PO SCH (21:16)
[2021-11-02] MEDS: metroNIDAZOLE INJ 500 MG/100 ML PREMIX IV SCH ×2 (22:35→23:07)
[2021-11-03] MEDS: NITROGLYCERIN SL 0.4 MG TABLET SL PRN ×3 (01:50→02:05)
[2021-11-03] MEDS ORDERED: ALUMINUM/MAGNES/SIMETH MAX STR 30 ML UDCUP PO PRN (02:15)
[2021-11-03] MEDS: MORPHINE 2 MG/1 ML SYRINGE IV PRN ×2 (02:21→06:25)
[2021-11-03] MEDS: SODIUM CHLORIDE 0.45% 1,000 ML IV SCH ×2 (04:18→06:04)
[2021-11-03] MEDS: metroNIDAZOLE INJ 500 MG/100 ML PREMIX IV SCH ×3 (06:02→23:42)
[2021-11-03 06:23] LABS: Calcium 8.6 MG/DL (8.5-10.1); Osmolality,Calculated 264.5 MOS/KG (273-304); Potassium 4.2 MMOL/L (3.5-5.1); Risk Ratio 5.15; VLDL Cholesterol 46.6 MG/DL
[2021-11-03 06:40] LABS: Basophils % 0.3 % (0.0-0.8); Eosinophils % 0.1 % (0.00-10.9); Hematocrit 41.3 VOL% (35.7-47.0); Hemoglobin 13.3 GM/DL (12.0-16.0); Immature Granulocytes % 0.5 %; Immature Granulocytes Absolute 0.07 #; Lymphocytes # 2.1 10*3/uL (1.4-4.0); Lymphocytes % 14.5 % (21.3-54.2); Mean Corpuscular HGB Conc 32.2 GM/DL (32-36); Mean Corpuscular Volume 96.7 FL (87-102); Mean Platelet Volume 10.1 FL (9.6-12.0); Monocytes % 9.2 % (1.7-12.7); Neutrophils % 75.4 % (38.7-73.9); Platelet Count 291 T/CUMM (130-400); Red Blood Count 4.27 MC/CUMM (3.8-5.5); Red Cell Distribution Width 13.6 % (9.3-17.3); White Blood Count 14.3 T/CUMM (4-12)
[2021-11-03] MEDS ORDERED: PANTOPRAZOLE 40 MG TABLET PO SCH (09:00)
[2021-11-03] MEDS ORDERED: PANTOPRAZOLE 40 MG VIAL IV SCH (09:00)
[2021-11-03] MEDS ORDERED: lisinopriL 10 MG TABLET PO SCH (09:00)
[2021-11-03] MEDS: CLOPIDOGREL 75 MG TABLET PO SCH (09:37)
[2021-11-03] MEDS: ASPIRIN EC 81 MG TABLET PO SCH (09:37)
[2021-11-03] MEDS: METOPROLOL TARTRATE 25 MG TABLET PO SCH ×2 (09:37→21:04)
[2021-11-03] MEDS: FUROSEMIDE 20 MG TABLET PO SCH (09:37)
[2021-11-03] MEDS: cilostazoL 100 MG TABLET PO SCH ×2 (09:37→21:04)
[2021-11-03] MEDS: PANTOPRAZOLE 40 MG VIAL IV SCH (09:40)
[2021-11-03] MEDS ORDERED: SODIUM CHLORIDE 0.9% 500 ML IV ONE ×3 (12:12→20:03)
[2021-11-03 12:59] LABS: Mucus,Urine Occasional /LPF (Occasional); RBC,Urine 1 /HPF (0-4); Squamous Epithelial Cell,Urine Occasional /HPF (0-10); Urine Color Yellow (Yellow)
[2021-11-03 13:00] LABS: Bilirubin,Urine Negative (Negative); Blood, Urine Negative (Negative); Glucose,Urine (UA) Negative (Negative); Ketones,Urine Negative (Negative); Nitrite,Urine Negative (Negative); Protein,Urine Negative (Negative); Urine Appearance Clear (Clear); Urine Specific Gravity 1.015 (1.001-1.035); Urine Urobilinogen 0.2 eU/dL (<2.0)
[2021-11-03] MEDS: cefTRIAXone 1,000 MG in SODIUM CHLORIDE 0.9% 100 ML IV SCH (14:59)
[2021-11-03 15:55] LABS: Arterial Base Excess iSTAT 1 MMOL/L (-2.5-2.5); Arterial Bicarbonate iSTAT 25.5 MMOL/L (20-26); Arterial O2 Saturation iSTAT 89 % (95-100); Arterial PCO2 iSTAT 39 MM HG (35-48); Arterial PO2 iSTAT 55 MM HG (80-95); Arterial Total CO2 iSTAT 27 MMO/L (23-27); Arterial pH iSTAT 7.424 (7.35-7.45)
[2021-11-03] MEDS: ONDANSETRON 4 MG/2 ML VIAL IV PRN (19:49)
[2021-11-03] MEDS: ATORVASTATIN 80 MG TABLET PO SCH (21:04)
[2021-11-04] MEDS: metroNIDAZOLE INJ 500 MG/100 ML PREMIX IV SCH (06:15)
[2021-11-04] MEDS: CLOPIDOGREL 75 MG TABLET PO SCH (08:47)
[2021-11-04] MEDS: cilostazoL 100 MG TABLET PO SCH (08:47)
[2021-11-04] MEDS: ASPIRIN EC 81 MG TABLET PO SCH (08:47)
[2021-11-04] MEDS: FUROSEMIDE 20 MG TABLET PO SCH (08:52)
[2021-11-04] MEDS: PANTOPRAZOLE 40 MG VIAL IV SCH (08:52)
[2021-11-04] MEDS: METOPROLOL TARTRATE 25 MG TABLET PO SCH (08:52)
[2021-11-04 08:58] VITALS: BP 117/67
[2021-11-04] MEDS ORDERED: lisinopriL 10 MG TABLET PO SCH (09:00)
[2021-11-04] MEDS ORDERED: buPROPion SR 150 MG TABLET PO SCH (21:00)
== END 2021-11-04 12:30 | disposition home or self-care (01) | DRG 247 ==
LOC: N.ED 09:57 → N.EDINP 09:57 → SUATTDRO 12:30 → N.TELES 14:33 → SUATTDRO 11-03 12:23
PROVIDERS: ADMIT Internal Medicine; ATTEND Phlebology
PROC: CLCCHCL (ICD-10-PCS; 2021-11-02 14:45)